=== PATIENT | female | born 1980 | race Caucasian/White ===

== ENCOUNTER 2018-11-24 10:36 | Emergency (ER) | payer OTHER ==
--- NOTE | 2018-11-24 11:08 | NUR ---
PT TO ED WITH SOB/CP, TREATED WITH ZPAC FOR BRONCHITIS LAST WEEK, WORSENING COUGH IN LAST 2 DAYS AND CP STARTING LAST NIGHT. PT TO ROOM 35
--- NOTE | 2018-11-24 11:13 | NUR ---
PATIENT TRANSFERRED TO ROOM 35, REPORT FROM CHELSEY BOONE. ASSUMED CARE OF PATIENT AT THIS TIME.
[2018-11-24] MEDS ORDERED: ESCI10TA10 PO (11:28)
--- NOTE | 2018-11-24 11:28 | NUR ---
PATIENT TO XRAY VIA [facility].
[2018-11-24] MEDS ORDERED: ALBUTEROL/IPRATROPIUM 2.5MG/0.5MG, 3 ML NPPB ONE (11:30)
[2018-11-24] MEDS ORDERED: ALBUTEROL/IPRATROPIUM 2.5MG/0.5MG, 3 ML ONE (11:38)
--- NOTE | 2018-11-24 12:12 | NUR ---
VS UPDATED IN CHART, AWAITING RESULTS, PATIENT UPDATED ON POC. NAD NOTED.
[2018-11-24 12:27] LABS: BASOPHILS # (AUTO) 0.02 x10^3/uL (0-0.1); BASOPHILS % (AUTO) 0 % (0-1); EOSINOPHILS # (AUTO) 0.14 x10^3/uL (0-0.4); EOSINOPHILS % (AUTO) 2 % (1-7); LYMPHOCYTES # (AUTO) 1.33 x10^3/uL (1-3.4); LYMPHOCYTES % (AUTO) 18 % (22-44); MD NO; MEAN CORPUSCULAR HEMOGLOBIN 28.4 pg (27.0-34.8); MEAN CORPUSCULAR HGB CONC 33.2 g/dL (32.4-35.8); MEAN CORPUSCULAR VOLUME 85.3 fL (80-100); MEAN PLATELET VOLUME 8.3 fL (7.4-10.4); MONOCYTES # (AUTO) 0.47 x10^3/uL (0.2-0.8); MONOCYTES % (AUTO) 6 % (2-9); NEUTROPHILS # (AUTO) 5.48 x10^3/uL (1.8-6.8); NEUTROPHILS % (AUTO) 74 % (42-75); PLATELET COUNT 342 x10^3/uL (130-400); RED BLOOD COUNT 4.77 x10^6/uL (3.82-5.3); RED CELL DISTRIBUTION WIDTH 14.9 % (9.6-15.2)
[2018-11-24 12:31] LABS: ALBUMIN 3.4 g/dL (3.4-5.0); ANION GAP 7 mmol/L (5-15); CALCIUM 8.7 mg/dL (8.5-10.1); CHLORIDE 107 mmol/L (98-107); CREATININE 0.69 mg/dL (0.55-1.02)
--- NOTE | 2018-11-24 13:04 | NUR ---
PATIENT AMB WITH STEADY GAIT TO BATHROOM.
--- NOTE | 2018-11-24 13:11 | NUR ---
PATIENT BACK TO BED, VS UPDATED IN CHART. NAD NOTED.
[2018-11-24] MEDS ORDERED: SODIUM CHLORIDE 0.9% 1,000ML IVBOLUS ONE (14:00)
[2018-11-24] MEDS ORDERED: SODIUM CHLORIDE FLUSH 10ML SYR IVF ONE (14:00)
--- NOTE | 2018-11-24 14:22 | NUR ---
IV STARTED, IVF ADMINISTERED PER MD ORDER. RECHECK VITALS AFTER IVF PER MD. PATIENT SITTING IN RNEY, NAD NOTED. CALL LIGHT WITHIN REACH.
[2018-11-24 15:08] VITALS: BP 133/75
--- NOTE | 2018-11-24 15:08 | NUR ---
IVF COMPLETED, CHART UP FOR RECHECK. AT BEDSIDE.
--- NOTE | 2018-11-24 15:30 | NUR ---
break rn: PER DR. POTTS UA NOT NEEDED.
== END 2018-11-24 15:23 | disposition home or self-care (01) ==
LOC: ED 12:16
DX: B34.9 Viral infection, unspecified (principal)
CPT/HCPCS: 36415; 71046; 80048; 82040; 85025; 85379; 93005; 94640; 99284; J7030; J7620

== ENCOUNTER 2018-11-25 17:54 | Emergency (ER) | payer OTHER ==
[~2018-11-25] VITALS: Ht 152.4 cm; Wt 124.6 kg
[~2018-11-25 17:54] MED LIST: ESCI10TA10 PO
[2018-11-25] MEDS ORDERED: SODIUM CHLORIDE FLUSH 10ML SYR IVF ONE (18:30)
[2018-11-25 18:38] LABS: BASOPHILS # (AUTO) 0.04 x10^3/uL (0-0.1); BASOPHILS % (AUTO) 1 % (0-1); EOSINOPHILS # (AUTO) 0.16 x10^3/uL (0-0.4); EOSINOPHILS % (AUTO) 3 % (1-7); LYMPHOCYTES # (AUTO) 1.89 x10^3/uL (1-3.4); LYMPHOCYTES % (AUTO) 30 % (22-44); MD NO; MEAN CORPUSCULAR HEMOGLOBIN 28.4 pg (27.0-34.8); MEAN CORPUSCULAR HGB CONC 32.5 g/dL (32.4-35.8); MEAN CORPUSCULAR VOLUME 87.3 fL (80-100); MEAN PLATELET VOLUME 8.3 fL (7.4-10.4); MONOCYTES # (AUTO) 0.71 x10^3/uL (0.2-0.8); MONOCYTES % (AUTO) 11 % (2-9); NEUTROPHILS % (AUTO) 56 % (42-75); PLATELET COUNT 345 x10^3/uL (130-400); RED BLOOD COUNT 4.76 x10^6/uL (3.82-5.3); RED CELL DISTRIBUTION WIDTH 15.3 % (9.6-15.2)
[2018-11-25 18:51] LABS: ALBUMIN 3.3 g/dL (3.4-5.0); ANION GAP 5 mmol/L (5-15); CALCIUM 8.6 mg/dL (8.5-10.1); CHLORIDE 108 mmol/L (98-107)
[2018-11-25 18:57] LABS: ALANINE AMINOTRANSFERASE 22 U/L (12-78); ALKALINE PHOSPHATASE 73 U/L (45-117); BILIRUBIN,TOTAL 0.3 mg/dL (0.2-1.0); CREATININE 0.81 mg/dL (0.55-1.02); TOTAL PROTEIN 7.4 g/dL (6.4-8.2); TROPONIN I < 0.015 ng/mL (0.000-0.045)
--- NOTE | 2018-11-25 19:20 | NUR ---
PT RESTING IN [place] WITH AT BEDSIDE, AWAITING LAB AND CT RESULTS. PT'S HR DOWN INTO 90'S. CALL LIGHT WITHIN REACH
[2018-11-25] MEDS ORDERED: OMNIPAQUE 350 MG/ML, 100ML BOTTLE ONE (20:11)
[2018-11-25 20:30] VITALS: BP 148/76
== END 2018-11-25 20:33 | disposition home or self-care (01) ==
LOC: ED 19:05
DX: J15.9 Unspecified bacterial pneumonia (principal); R00.2 Palpitations
CPT/HCPCS: 36415; 71275; 80053; 84484; 84703; 85025; 93005; 99284; Q9967

== ENCOUNTER 2019-01-27 12:46 | Emergency (ER) | payer OTHER ==
[~2019-01-27] VITALS: Ht 152.4 cm; Wt 122.0 kg
--- NOTE | 2019-01-27 12:53 | NUR ---
LUNCH RN: PT CODE 250 AT THIS TIME. PT HAD SOB WITH INCREASED HR WHILE WALKING TO [place]. PT REPROTS "I WAS UNABLE TO CATCH MY BREATH AND UNABLE TO GET AIR. I FELT MY HEART RACING AND MY APPLE WATCH READ MY HR HIGH". PT ON ARRIVAL HAD EKG COMPLETED AND CONNECTED TO ALL MONITORS AND CALL LIGHT IN REACH. PT APPEARS TO BE IN SINUS TACH AND OCCASION AFIB POSSIBLY. PIV BEING ATTEMPTED BY EMTA. AWAITING FURTHER ORDERS.
--- NOTE | 2019-01-27 13:00 | NUR ---
DR RETANA BS FOR EXAM. VO IV BOLUS.
--- NOTE | 2019-01-27 13:13 | NUR ---
IV ATTEMPTED X 2 W/OUT SUCCESS BY PETER NAVARRETE. U/S IV TO BE CONSIDERED.
--- NOTE | 2019-01-27 13:20 | NUR ---
CORRECTION TO IV DOCUMENTATION: IV 20 LT FA (NOT AC).
[2019-01-27] MEDS ORDERED: SODIUM CHLORIDE FLUSH 10ML SYR IVF ONE (13:30)
[2019-01-27] MEDS ORDERED: SODIUM CHLORIDE 0.9% 1,000ML IVBOLUS ONE (13:30)
[2019-01-27 13:31] LABS: BASOPHILS # (AUTO) 0.16 x10^3/uL (0-0.1); BASOPHILS % (AUTO) 1 % (0-1); EOSINOPHILS # (AUTO) 0.21 x10^3/uL (0-0.4); EOSINOPHILS % (AUTO) 2 % (1-7); LYMPHOCYTES % (AUTO) 34 % (22-44); MD NO; MEAN CORPUSCULAR HEMOGLOBIN 27.9 pg (27.0-34.8); MEAN CORPUSCULAR HGB CONC 32.5 g/dL (32.4-35.8); MEAN CORPUSCULAR VOLUME 85.7 fL (80-100); MEAN PLATELET VOLUME 8.2 fL (7.4-10.4); MONOCYTES # (AUTO) 0.87 x10^3/uL (0.2-0.8); MONOCYTES % (AUTO) 7 % (2-9); NEUTROPHILS # (AUTO) 6.88 x10^3/uL (1.8-6.8); NEUTROPHILS % (AUTO) 56 % (42-75); PLATELET COUNT 358 x10^3/uL (130-400); RED BLOOD COUNT 4.84 x10^6/uL (3.82-5.3); RED CELL DISTRIBUTION WIDTH 15.2 % (9.6-15.2)
[2019-01-27 13:42] LABS: ALBUMIN 3.3 g/dL (3.4-5.0); ANION GAP 7 mmol/L (5-15); CHLORIDE 106 mmol/L (98-107)
[2019-01-27 13:47] LABS: CREATININE 0.72 mg/dL (0.55-1.02); TROPONIN I < 0.015 ng/mL (0.000-0.045)
[2019-01-27 14:47] VITALS: BP 131/70
--- NOTE | 2019-01-27 14:51 | NUR ---
DENIES DIZZINESS/LIGHTHEADEDNESS W/ SITTING & STANDING. AMBULATORY TO [facility] BR W/ QUICK STEADY GAIT.
== END 2019-01-27 15:05 | disposition home or self-care (01) ==
LOC: ED 13:55
DX: R00.0 Tachycardia, unspecified (principal); E86.0 Dehydration
CPT/HCPCS: 36415; 71045; 80048; 82040; 83880; 84484; 85025; 93005; 96360; 99284; J7030

== ENCOUNTER → 2019-05-16 | Outpatient (CLI) | payer OTHER | END | disposition home or self-care (01) | LOC: CVU 06:45 | PROVIDERS: ATTEND Internal Medicine Cardiovascular Disease | DX: R00.2 Palpitations (principal); R42 Dizziness and giddiness | CPT/HCPCS: 93306 ==

== ENCOUNTER 2019-05-31 10:49 | Emergency (ER) | payer OTHER ==
[~2019-05-31] VITALS: Ht 152.4 cm; Wt 122.0 kg
--- NOTE | 2019-05-31 11:19 | NUR ---
AUTOM[employer] [facility] FORMER NOTE: EKG COMPLETED AND REVIEWED BY ERP.
--- NOTE | 2019-05-31 11:31 | NUR ---
DIPPER CLOCK AND WATCH HANDS: PT AMBULATORY TO ROOM FROM LOBBY
[2019-05-31 12:17] LABS: BASOPHILS # (AUTO) 0.02 x10^3/uL (0-0.1); BASOPHILS % (AUTO) 0 % (0-1); EOSINOPHILS # (AUTO) 0.08 x10^3/uL (0-0.4); EOSINOPHILS % (AUTO) 1 % (1-7); LYMPHOCYTES # (AUTO) 2.16 x10^3/uL (1-3.4); LYMPHOCYTES % (AUTO) 26 % (22-44); MD NO; MEAN CORPUSCULAR HEMOGLOBIN 28.4 pg (27.0-34.8); MEAN CORPUSCULAR HGB CONC 32.9 g/dL (32.4-35.8); MEAN CORPUSCULAR VOLUME 86.3 fL (80-100); MEAN PLATELET VOLUME 7.8 fL (7.4-10.4); MONOCYTES # (AUTO) 0.47 x10^3/uL (0.2-0.8); MONOCYTES % (AUTO) 6 % (2-9); NEUTROPHILS # (AUTO) 5.57 x10^3/uL (1.8-6.8); NEUTROPHILS % (AUTO) 67 % (42-75); PLATELET COUNT 383 x10^3/uL (130-400); RED BLOOD COUNT 4.75 x10^6/uL (3.82-5.3); RED CELL DISTRIBUTION WIDTH 15.1 % (9.6-15.2)
[2019-05-31 12:26] LABS: ALANINE AMINOTRANSFERASE 23 U/L (12-78); ALBUMIN 3.4 g/dL (3.4-5.0); ANION GAP 4 mmol/L (5-15); CALCIUM 8.9 mg/dL (8.5-10.1); CHLORIDE 106 mmol/L (98-107)
[2019-05-31 12:31] LABS: ALKALINE PHOSPHATASE 66 U/L (45-117); BILIRUBIN,TOTAL 0.4 mg/dL (0.2-1.0); FREE T4 (FREE THYROXINE) 1.22 ng/dL (0.76-1.46); TOTAL PROTEIN 7.6 g/dL (6.4-8.2)
[2019-05-31 12:48] LABS: MICROSCOPIC AUTO
[2019-05-31 12:50] LABS: CULTURE INDICATED? YES
--- NOTE | 2019-05-31 13:10 | NUR ---
RECEIVED REPORT FROM CELSO. PT LAYING ON GURNEY WITH EYES CLOSED, RESPONDS APPROP TO STAFF, NAD, COMFORT MEASURES PROVIDED, CALL LIGHT WITHIN REACH.
--- NOTE | 2019-05-31 13:12 | NUR ---
Report to Cierra brenner rn.
--- NOTE | 2019-05-31 14:01 | NUR ---
PT UPRIGHT ON GURNEY AWAKE & COMFORTABLE, RESPONDS APPROP TO STAFF, NAD, COMFORT MEASURES PROVIDED, CALL LIGHT WITHIN REACH.
[2019-05-31 14:02] VITALS: BP 131/79
--- NOTE | 2019-05-31 14:31 | NUR ---
Patient given discharge instructions and they have confirmed that they understand the instructions. Patient ambulatory with steady gait.
== END 2019-05-31 14:33 | disposition home or self-care (01) ==
LOC: ED 14:26
DX: F41.1 Generalized anxiety disorder (principal); R63.0 Anorexia; R53.1 Weakness
CPT/HCPCS: 36415; 80053; 81001; 84439; 84443; 84703; 85025; 87086; 93005; 99284

== ENCOUNTER 2019-08-24 07:20 | Outpatient (CLI) | payer OTHER | END 2019-08-24 23:59 | disposition home or self-care (01) | LOC: CFH 07:20 | PROVIDERS: ATTEND Obstetrics & Gynecology | DX: Z12.31 Encounter for screening mammogram for malignant neoplasm of breast (principal) | CPT/HCPCS: 77063; 77067 ==

== ENCOUNTER 2019-12-26 08:45 | Emergency (ER) | payer OTHER ==
[~2019-12-26] VITALS: Ht 152.4 cm; Wt 123.6 kg
[2019-12-26] MEDS ORDERED: MECLIZINE CHEWABLE 25 MG TAB ONE (09:08)
--- NOTE | 2019-12-26 09:15 | NUR ---
PT WITH C/O DIZZINESS UPON AWAKENING THIS AM, STATES IT CAME ON QUICKLY. NO CP/SOB REPORTED. PT WITH HX PANIC ATTACKS AND GEN ANXIETY. PT DENIES DIZZINESSS AT THIS TIME, PT STATES SHE FEEL LIKE HER "HEART IS RACING" PT WITH HR 108 IN RM AT THIS TIME ALL OTHER VSS.
[2019-12-26 09:18] LABS: BASOPHILS # (AUTO) 0.04 x10^3/uL (0-0.1); BASOPHILS % (AUTO) 1 % (0-1); EOSINOPHILS # (AUTO) 0.31 x10^3/uL (0-0.4); EOSINOPHILS % (AUTO) 4 % (1-7); LYMPHOCYTES # (AUTO) 3.12 x10^3/uL (1-3.4); LYMPHOCYTES % (AUTO) 36 % (22-44); MD NO; MEAN CORPUSCULAR HEMOGLOBIN 28.4 pg (27.0-34.8); MEAN CORPUSCULAR HGB CONC 32.9 g/dL (32.4-35.8); MEAN CORPUSCULAR VOLUME 86.4 fL (80-100); MEAN PLATELET VOLUME 7.8 fL (7.4-10.4); MONOCYTES # (AUTO) 0.58 x10^3/uL (0.2-0.8); MONOCYTES % (AUTO) 7 % (2-9); NEUTROPHILS # (AUTO) 4.64 x10^3/uL (1.8-6.8); NEUTROPHILS % (AUTO) 53 % (42-75); PLATELET COUNT 408 x10^3/uL (130-400); RED BLOOD COUNT 4.88 x10^6/uL (3.82-5.3); RED CELL DISTRIBUTION WIDTH 15.2 % (9.6-15.2)
[2019-12-26 09:25] VITALS: BP 133/70
--- NOTE | 2019-12-26 09:28 | NUR ---
PT AMBULATED TO BR WITH STEADY GAIT, UA OBTAINED AND SENT TO LAB
[2019-12-26 09:32] LABS: MICROSCOPIC AUTO
[2019-12-26 09:32] LABS: ALBUMIN 3.2 g/dL (3.4-5.0); ANION GAP 7 mmol/L (5-15); CALCIUM 8.7 mg/dL (8.5-10.1); CHLORIDE 107 mmol/L (98-107)
[2019-12-26 09:37] LABS: ALANINE AMINOTRANSFERASE 25 U/L (12-78); ALKALINE PHOSPHATASE 71 U/L (45-117); BILIRUBIN,TOTAL 0.4 mg/dL (0.2-1.0); TOTAL PROTEIN 7.5 g/dL (6.4-8.2); TROPONIN I < 0.015 ng/mL (0.000-0.045)
[2019-12-26] MEDS ORDERED: MECLIZINE CHEWABLE 25 MG TAB PO ONE (10:00)
[2019-12-26] MEDS ORDERED: SODIUM CHLORIDE 0.9% 1,000ML IVBOLUS ONE (10:00)
== END 2019-12-26 10:28 | disposition home or self-care (01) ==
LOC: ED 09:06
DX: N30.00 Acute cystitis without hematuria (principal); R42 Dizziness and giddiness; R00.2 Palpitations; R94.31 Abnormal electrocardiogram [ECG] [EKG]
CPT/HCPCS: 36415; 80053; 81001; 84484; 84703; 85025; 87086; 93005; 99284; J7030

== ENCOUNTER 2020-07-16 03:34 | Emergency (ER) | payer OTHER ==
[~2020-07-16] VITALS: Ht 152.4 cm; Wt 125.0 kg
[2020-07-16 04:43] LABS: BASOPHILS % (AUTO) 1 % (0-1); EOSINOPHILS % (AUTO) 2 % (1-7); LYMPHOCYTES % (AUTO) 31 % (22-44); MEAN CORPUSCULAR HEMOGLOBIN 28.2 pg (27.0-34.8); MEAN CORPUSCULAR HGB CONC 33.5 g/dL (32.4-35.8); MEAN PLATELET VOLUME 7.9 fL (7.4-10.4); MONOCYTES % (AUTO) 8 % (2-9); NEUTROPHILS % (AUTO) 59 % (42-75); PLATELET COUNT 368 x10^3/uL (130-400); RED BLOOD COUNT 4.65 x10^6/uL (3.82-5.3); RED CELL DISTRIBUTION WIDTH 14.4 % (9.6-15.2)
[2020-07-16 04:50] VITALS: BP 105/68
[2020-07-16 04:53] LABS: ALBUMIN 3.1 g/dL (3.4-5.0); ANION GAP 4 mmol/L (5-15); CALCIUM 8.6 mg/dL (8.5-10.1); CHLORIDE 107 mmol/L (98-107); CREATININE 0.78 mg/dL (0.55-1.02)
[2020-07-16 05:03] LABS: T4 (THYROXINE) 9.6 mcg/dL (4.8-13.9); TROPONIN I < 0.015 ng/mL (0.000-0.045)
[2020-07-16 05:26] LABS: MD SCAN
== END 2020-07-16 06:10 | disposition home or self-care (01) ==
LOC: ED 05:00
DX: R00.2 Palpitations (principal); F41.1 Generalized anxiety disorder; R07.89 Other chest pain; R94.31 Abnormal electrocardiogram [ECG] [EKG]
CPT/HCPCS: 36415; 71045; 80048; 82040; 83735; 84436; 84443; 84484; 84703; 85025; 93005; 99285

== ENCOUNTER 2020-11-28 18:13 | Emergency (ER) | payer OTHER ==
[~2020-11-28] VITALS: Ht 152.4 cm; Wt 127.0 kg
--- NOTE | 2020-11-28 18:20 | NUR ---
BIB [facility] FROM HOME. PT C/O DIZZINESS, CHEST AND BACK TIGHTNESS X1.5HR. P[employer]CH [employer] [facility]: FSB[facility] 127 HX: ANXIETY PT STATES THIS ALL FEELS LIKE WHEN SHE HAS PAINIC ATTACKS, EXCEPT FOR THE DIZZINESS. PT COMPLIANT WITH LEXAPRO 10MG MEDS. PT CONNECTED TO MONITORING. CALL LIGHT IN REACH. WARM BLANKET PROVIDED. EKG COMPLETE.
[2020-11-28] MEDS ORDERED: MECLIZINE CHEWABLE 25 MG TAB ONE (18:59)
[2020-11-28] MEDS ORDERED: ONDANSETRON ODT 4 MG ONE (18:59)
[2020-11-28] MEDS ORDERED: ONDANSETRON ODT 4 MG PO ONE (19:00)
[2020-11-28] MEDS ORDERED: MECLIZINE CHEWABLE 25 MG TAB PO ONE (19:00)
[2020-11-28 19:02] VITALS: BP 129/73
--- NOTE | 2020-11-28 19:02 | NUR ---
MEDS ADMIN PER SEP.
--- NOTE | 2020-11-28 19:45 | NUR ---
PT STATES SHE FEELS BETTER. PT AMBULATED TO RESTROOM WITH STEADY GAIT. ERMD AT BEDSIDE TO UPDATE PT ON POC.
== END 2020-11-28 20:04 | disposition home or self-care (01) ==
LOC: ED 19:55
DX: H81.10 Benign paroxysmal vertigo, unspecified ear (principal); R94.31 Abnormal electrocardiogram [ECG] [EKG]
CPT/HCPCS: 93005; 99283; Q0162

== ENCOUNTER 2021-03-19 15:09 | Outpatient (CLI) | payer OTHER | END 2021-03-19 23:59 | disposition home or self-care (01) | LOC: CFH 15:09 | PROVIDERS: ATTEND Internal Medicine | DX: Z12.31 Encounter for screening mammogram for malignant neoplasm of breast (principal) | CPT/HCPCS: 77063; 77067 ==

== ENCOUNTER 2021-03-27 08:07 | Outpatient (CLI) | payer OTHER | END 2021-03-27 23:59 | disposition home or self-care (01) | LOC: CFH 08:07 | PROVIDERS: ATTEND Internal Medicine | DX: R92.8 Other abnormal and inconclusive findings on diagnostic imaging of breast (principal) | CPT/HCPCS: 77065 ==